=== PATIENT | female | born 2000 | race Caucasian/White ===

== ENCOUNTER 2018-05-14 17:09 | Emergency (ER) | payer OTHER ==
--- NOTE | 2018-05-14 18:08 | EDPHY ---
H & P Time Seen by Provider: 05/14/18 17:15 HPI/ROS: HPI Alcohol intoxication. 17-year-old female by private vehicle with [employer] on an arc hold. She has been drinking vodka and wine today to celebrate sting [employer]. She was too intoxicated to ambulate according to her friends whom she was with. She apparently fell several times in the mud and had a difficult time getting up and ambulating. The patient denies any complaints to me. She reports that she is feeling better. She denies any history of trauma or assault. ROS: Constitutional: No fever, no chills. As above. Eyes: No discharge. No changes in vision. ENT: No sore throat. No nasal congestion or rhinorrhea. Respiratory: No cough. No shortness of breath. Cardiac: No chest pain, no palpitations. Gastrointestinal: No abdominal pain, no vomiting, no diarrhea. Genitourinary: No hematuria. No dysuria or increased frequency with urination. Musculoskeletal: No back pain. No neck pain. No myalgias or arthralgias. Skin: No rashes. Neurological: No headache. No focal weakness or altered sensation. Past medical history: No past medical history. Social history: [employer]. Drinks alcohol socially. No tobacco. Physical Exam: General Appearance: Alert, no distress. There is an odor of alcohol on her breath. This patient is responding to questions appropriately and in full sentences. This patient appears well-hydrated and well-nourished. Head: Normocephalic atraumatic. Eyes: Pupils equal and round no pallor or injection. No lid edema, erythema or injection. ENT, Mouth: Mucous membranes are moist. The pharyngeal tissues are unremarkable. No edema or swelling. No asymmetry suggestive of abscess. No erythema or exudates. Dentition is intact. Respiratory: There are no retractions, lungs are clear to auscultation with good air movement bilaterally. Cardiovascular: Regular rate and rhythm. No murmur. Gastrointestinal: Abdomen is soft and nontender, no masses, bowel sounds normal. No focal tenderness at McBurney's point. No Lipscomb sign. Neurological: Motor sensory function is grossly intact. Cranial nerves are normal. Gait is normal. Skin: Warm and dry, no rashes. Musculoskeletal: Neck is supple and nontender. Extremities are symmetrical. All joints range without pain or impingement. Psychiatric: No agitation. No depression. Database: EKG: Imaging: Procedures: Emergency department course: Triage vital signs reviewed and are unremarkable. This patient is appropriate for transfer to the [facility] with [employer]. She is on an arc hold. I discussed the liability of alcohol abuse with her. Follow-up and return to emergency department precautions reviewed with her. All of her questions were answered. She was discharged in good condition with [employer] to the [facility]. Differential Diagnosis: The differential diagnosis on this patient includes but is not limited to alcohol intoxication. Assault, significant traumatic injury, depression, suicidal ideation unlikely. This represents a partial list of diagnoses considered. These considerations are based on history, physical exam, past history, reassessment and diagnostic testing. Smoking Status: Never smoked Constitutional: Initial Vital Signs Temperature (C) 37.4 C 05/14/18 17:19 Heart Rate 99 05/14/18 17:19 Respiratory Rate 16 05/14/18 17:19 Blood Pressure 124/91 H 05/14/18 17:19 O2 Sat (%) 97 05/14/18 17:19 O2 Delivery Mode Room Air Allergies/Adverse Reactions: No Known Allergies Allergy (Unverified 05/14/18 17:19) Home Medications: Medication Instructions Recorded FOCALIN 05/14/18 Departure - Departure Disposition: Law Enforcement/Court/Snf Clinical Impression: Alcoholic intoxication Condition: Good Instructions: Alcohol Intoxication (ED) Additional Instructions: Read and follow provided instructions. Follow-up with your primary care physician in 1-2 days for re-evaluation as needed. Do not drink alcohol. Return to the emergency department for worsening symptoms or other serious concerns. Referrals: [facility] Detox 24 Hours [Outside] - As per Instructions
[2018-05-14 18:31] VITALS: BP 106/89
== END 2018-05-14 18:31 ==
DX: F10.920 Alcohol use, unspecified with intoxication, uncomplicated (principal)